=== PATIENT | male | born 1960 | race Caucasian/White ===

== ENCOUNTER 2017-09-23 09:55 | Emergency (ER) | payer MEDICAID ==
[2017-09-23 09:56] VITALS: BMI 29.2
[2017-09-23 10:40] VITALS: PULSE 60
--- NOTE | 2017-09-23 11:16 | C.PDOC ---
History Of Present Illness 57 year old male presents to the emergency department with complaints of pain and swelling in his left wrist/hand area. Patient reports that three weeks ago at work, a "1000lb machine" slammed into his wrist, and he reports no relief of swelling or pain from OTC medications. Patient denies numbness or tingling. Time Seen by Provider: 09/23/17 11:03 Chief Complaint (Nursing): Upper Extremity Problem/Injury History Per: Patient History/Exam Limitations: no limitations Onset/Duration Of Symptoms: Other (3 weeks) Current Symptoms Are (Timing): Still Present Quality: "Pain", Other (swelling) Past Medical History Reviewed: Historical Data, Nursing Documentation, Vital Signs Vital Signs: Last Vital Signs Temp 97.3 F L 09/23/17 11:35 Pulse 60 09/23/17 11:35 Resp 18 09/23/17 11:35 BP 113/73 09/23/17 11:35 Pulse Ox 100 09/23/17 12:33 - Medical History PMH: Gall Bladder Disease, HTN, Hypercholesterolemia Denies: Chronic Kidney Disease Surgical History: Cholecystectomy - [facility] Procedures CLOSED ENDOSCOPIC BIOPSY OF LARGE INTESTINE (01/09/15) ESOPHAGOGASTRODUODENOSCOPY [EGD] W/CLOSED BIOPSY (01/02/15) LAPAROSCOP LYSIS-PERITONEAL ADHES (12/21/14) LAPAROSCOPIC CHOLECYSTECTOMY (12/21/14) LAPAROSCOPIC ROBOTIC ASSISTED PROCEDURE (12/21/14) Family History: States: No Known Family Hx - Social History Hx Tobacco Use: No Hx Alcohol Use: Yes Hx Substance Use: No - Immunization History Hx Tetanus Toxoid Vaccination: No Hx Influenza Vaccination: No Hx Pneumococcal Vaccination: No Review Of Systems Musculoskeletal: Positive for: Arm Pain, Hand Pain, Other (hand/wrist swelling) Neurological: Negative for: Numbness, Other (tingling) Physical Exam - Physical Exam Appears: Non-toxic, No Acute Distress Skin: Normal Color, Warm Head: Atraumatic, Normacephalic Extremity: Normal ROM (full range of motion at left wrist), Tenderness (ranging from the left distal radius to proximal metacarpal of the left hand), Swelling ( swelling to the distal 1/3 of the radius) Extremity: Left: Normal ROM (wrist) Pulses: Left Radial: Normal, Right Radial: Normal Neurological/Psych: Oriented x3, Normal Speech, Normal Cognition ED Course And Treatment O2 Sat by Pulse Oximetry: 100 (RA) Pulse Ox Interpretation: Normal - Other Rad XR Left Forearm X-Ray: Viewed By Me, Read By Radiologist Interpretation: Left forearm two views. History: Pain and swelling. Comparison : None available. Findings: Soft tissue swelling seen at level of the distal left forearm. Visualized osseous structures appear grossly preserved. Degenerative changes at the level of the elbow and wrist joint spaces. Impression: Degenerative changes. If pain persists, consider further evaluation with MRI. XR Left Wrist X-Ray: Viewed By Me, Read By Radiologist Interpretation: Left wrist four views. History: Proximal 2nd metacarpal pain. Comparison: None available. Findings: Narrowing of the radiocarpal joint space. Mild negative ulnar variance. Mild productive change at the base of the 2nd metacarpal, nonspecific. Impression: Degenerative changes. If pain persists, consider MRI. Progress Note: Plan: Motrin 600mg PO. XR Left Forearm. XR Left Wrist 3 Views Medical Decision Making Medical Decision Making: xrays reviewed, ?fx of trapezoid, preformed wrist splint applied, no forearm fx noted. d/c with nsaids and hand f/u Disposition Counseled Patient/Family Regarding: Studies Performed, Diagnosis, Need For Followup, Rx Given - Disposition Referrals: Anne Quintana MD [Staff Provider] - Disposition: HOME/ ROUTINE Disposition Time: 12:31 Condition: GOOD Instructions: Common Wrist Injuries (DC) Forms: General Discharge Instructions, [facility] ([place]ian), Work Excuse - Clinical Impression Clinical Impression: Injury of left forearm and wrist - PA / MAIL SORTER / Resident Statement MD/DO has reviewed & agrees with the documentation as recorded. - Scribe Statement The provider has reviewed the documentation as recorded by the Scribe (Good Hodgson) All medical record entries made by the Scribe were at my direction and personally dictated by me. I have reviewed the chart and agree that the record accurately reflects my personal performance of the history, physical exam, medical decision making, and the department course for this patient. I have also personally directed, reviewed, and agree with the discharge instructions and disposition.
[2017-09-23 11:36] VITALS: BP 113/73; RESP 18; TEMP 97.3
[2017-09-23 12:33] VITALS: O2SAT 100
--- NOTE | 2017-09-23 13:34 | RAD ---
Left forearm two views History: Pain and swelling. Comparison: None available. Findings: Soft tissue swelling seen at level of the distal left forearm. Visualized osseous structures appear grossly preserved. Degenerative changes at the level of the elbow and wrist joint spaces. Impression: Degenerative changes. If pain persists, consider further evaluation with MRI.
--- NOTE | 2017-09-23 14:24 | RAD ---
Left wrist four views History: Proximal 2nd metacarpal pain. Comparison: None available. Findings: Narrowing of the radiocarpal joint space. Mild negative ulnar variance. Mild productive change at the base of the 2nd metacarpal, nonspecific. Impression: Degenerative changes. If pain persists, consider MRI.
== END 2017-09-23 13:05 | disposition home or self-care (01) ==
LOC: C.ER 09:55
DX: S59.912A Unspecified injury of left forearm, initial encounter (principal); S69.92XA Unspecified injury of left wrist, hand and finger(s), initial encounter; W22.8XXA Striking against or struck by other objects, initial encounter; Y99.0 Civilian activity done for income or pay